=== PATIENT | male | born 1970 | race Caucasian/White ===

== ENCOUNTER 2022-09-26 10:08 | Day surgery (SDC) | payer MEDICAID ==
[2022-09-24 09:56] LABS: COVID AG,FIA SOURCE NASAL SWAB
[~2022-09-26] VITALS: Ht 157.5 cm; Wt 54.5 kg
[~2022-09-26 10:08] MED LIST: OMEP20 PO; SODIUM CHLORIDE 0.9% 1,000 ML ONE
[2022-09-26] MEDS ORDERED: PROPOFOL 1% 20 ML VIAL IVP ONE (10:09)
[2022-09-26] MEDS ORDERED: SODIUM CHLORIDE 0.9% 1,000 ML IV ONE (11:00)
[2022-09-26] MEDS ORDERED: SODIUM CHLORIDE 0.9% 500 ML IV ONE (14:15)
[2022-09-26] MEDS ORDERED: OMEP1CAP25 PO (14:43)
[2022-12-19] MEDS ORDERED: SULF-261 PO (11:55)
[2022-12-19] MEDS ORDERED: CEPH-558 PO (11:55)
== END 2022-09-26 16:00 | disposition home or self-care (01) ==
LOC: SURGERY 10:08
PROVIDERS: ATTEND Internal Medicine Gastroenterology
DX: K92.1 Melena (principal); K29.80 Duodenitis without bleeding; K25.9 Gastric ulcer, unspecified as acute or chronic, without hemorrhage or perforation; K20.90 Esophagitis, unspecified without bleeding; K26.9 Duodenal ulcer, unspecified as acute or chronic, without hemorrhage or perforation; Z20.822 Contact with and (suspected) exposure to COVID-19; Z98.890 Other specified postprocedural states; Z79.899 Other long term (current) drug therapy; Z86.73 Personal history of transient ischemic attack (TIA), and cerebral infarction without residual deficits
CPT/HCPCS: 87426; 43239; 88305; 88312; 88313; C9803; C1769; J2704; J7030; J7040